=== PATIENT | male | born 1980 | race Caucasian/White ===

== ENCOUNTER 2022-05-20 14:15 | Outpatient (CLI) | payer OTHER, SELFPAY ==
--- NOTE | 2022-05-20 14:30 | MR_ITS ---
[facility] [address] [facility] [address] Phone:?[phone] Fax:?[phone] Referring Physician Information: Jhony Walker M.D. [id number] [address] Phone:?[phone] Fax:?[phone] Patient:Ana Gamboa D.O.B:?1980 Sex:?Male Phone:?[phone] [facility] MRN:?[id number] Exam Date:?05/20/2022 ? EXAM: MRI of the RIGHT SHOULDER, without contrast CLINICAL: Right shoulder pain for an unknown length of time. COMPARISONS: None available. TECHNICAL: MRI sequences of the right shoulder: Axials: PD, PDFS Coronals: PD, T2FS Sagittals: PDFS, T2 SEDATION: None. CONTRAST: None. FINDINGS: Rotator cuff: Supraspinatus/Infraspinatus: There is mild tendinosis of the distal infraspinatus tendon. No significant tendon tear. There is apparent mild edema within the infraspinatus muscle and anterior deltoid muscle, nonspecific. No significant fatty atrophy of the muscle bellies. Teres minor: No tendinosis, tear or atrophy. Subscapularis: No tendinosis, tear or atrophy. Bursae: Subacromial-subdeltoid: No convincing subacromial bursal thickening/bursitis. Subcoracoid: No convincing subcoracoid bursal thickening/bursitis. Coracoacromial arch: Acromion morphology: Type II. No os acromiale. Acromiohumeral space: Within normal limits. Coracohumeral space: Within normal limits. Biceps tendon, long head: Intraarticular and extraarticular segments intact without rupture, tendinopathy or displacement. Glenohumeral joint: Physiologic volume of joint fluid. Articular cartilage: No significant chondral loss. Capsule: There is mild thickening of the inferior glenohumeral ligament. No capsular disruption identified. Labrum: Mild ill-defined fraying of the superior labrum. Remainder of the glenoid labrum appears intact as visualized on this nonarthrogram exam. No perilabral cyst identified. Bones: No suspicious marrow signal alteration, fracture or dislocation. Acromioclavicular joint: No acute injury, arthropathy, or inferior hypertrophy. IMPRESSION: 1. Mild tendinosis of the distal infraspinatus tendon. No significant rotator cuff tendon tear identified. Apparent mild edema within the infraspinatus muscle and anterior deltoid muscle is nonspecific but could reflect mild strains, neuropathic changes, etc. 2. Mild ill-defined fraying of the superior labrum. 3. Mild thickening of the inferior glenohumeral ligament which may reflect capsular redundancy but also can be seen in patients with adhesive capsulitis, recommend close clinical correlation. 4. No glenohumeral chondral defects or fracture. Intact long head biceps tendon. JCZ Electronically signed on 05/23/2022 7:39:00 AM by Raul Rangel D.O.
== END 2022-05-20 14:16 | disposition home or self-care (01) ==
LOC: MRI 14:16
PROVIDERS: PCP Family Medicine; Visit Provider Family Medicine
DX: M25.511 Pain in right shoulder (principal); M75.01 Adhesive capsulitis of right shoulder
CPT/HCPCS: 73221

== ENCOUNTER 2022-07-06 15:23 | Outpatient (CLI) | payer OTHER, SELFPAY ==
[2022-07-06 13:41] LABS: Chloride* 101 mmol/L (96-114); Potassium* 4.4 mmol/L (3.6-5.1); Sodium* 139 mmol/L (135-149)
[2022-07-06 13:44] LABS: Blood Urea Nitrogen* 8 mg/dL (5-24); Carbon Dioxide* 27 mmol/L (20-32); Cholesterol* 248 mg/dL (90-199); Creatinine* 0.8 mg/dL (0.5-1.5); Estimated Glomerular Filt Rate 114 ml/min; Glucose* 95 mg/dL (60-115); Triglycerides* 201 mg/dL (40-149)
[2022-07-06 13:45] LABS: Calcium* 9.5 mg/dL (8.4-10.6); HDL Cholesterol* 45 mg/dL (>=40); LDL Cholesterol Calculated 163 mg/dL (<100)
== END 2022-07-06 15:24 | disposition home or self-care (01) ==
PROVIDERS: PCP Family Medicine; Visit Provider Family Medicine
DX: Z00.00 Encounter for general adult medical examination without abnormal findings (principal); E78.5 Hyperlipidemia, unspecified; E78.00 Pure hypercholesterolemia, unspecified; L70.9 Acne, unspecified; E66.9 Obesity, unspecified
CPT/HCPCS: 80048; 80061